=== PATIENT | male | born 2005 | race Caucasian/White ===

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

== ENCOUNTER 2024-11-23 18:17 | Emergency (ER) | payer OTHER ==
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
[2024-11-23 19:25] VITALS: RESP 20; TEMP 98.9
[2024-11-23] MEDS: IBUPROFEN 800 MG TAB PO STA (20:25)
[2024-11-23 20:28] VITALS: BP 118/78; PULSE 90
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
== END 2024-11-23 20:25 | disposition home or self-care (01) ==
LOC: EC 18:17
DX: S40.021A Contusion of right upper arm, initial encounter (principal); F17.200 Nicotine dependence, unspecified, uncomplicated; Z88.1 Allergy status to other antibiotic agents; Z91.030 Bee allergy status; W21.02XA Struck by soccer ball, initial encounter
CPT/HCPCS: 99283